=== PATIENT | male | born 1940 | race African-American/Black ===

== ENCOUNTER 2016-09-03 14:56 | Inpatient (IN) | payer OTHER ==
[~2016-09-03] VITALS: Ht 167.6 cm; Wt 92.5 kg
[2016-09-03 17:26] VITALS: BP 151/66; PULSE 74; RESP 18; TEMP 97.5; O2SAT 99
[2016-09-03] MEDS ORDERED: ATEN-41 PO (17:44)
[2016-09-03] MEDS ORDERED: METF-304 PO (17:44)
[2016-09-03] MEDS ORDERED: FURO-149 PO (17:44)
[2016-09-03] MEDS ORDERED: LOSA50TA3 PO (17:44)
[2016-09-03] MEDS ORDERED: NIFE60TA7 PO (17:44)
[2016-09-03] MEDS ORDERED: ASPI81TA2 PO (17:44)
[2016-09-03] MEDS ORDERED: DEXTROSE 50% JECT 50 ML DISP.SYRIN IVP PRN (18:15)
[2016-09-03] MEDS ORDERED: ACETAMINOPHEN 650 MG/20.3 ML UDC PO PRN (18:15)
--- NOTE | 2016-09-03 19:46 | NUR ---
INITIAL ASSESSMENT: RECEIVE PT IN BED, AWAKE, ALERT AND ORIENTED X4, WATCHING TV, BREATHING EVEN AND NON LABORED WITH 2 LI/NC, VITAL STABLE, DENIES PAIN, COUGHING WITH THICK YELLOW SEPTUM WITH SCANTY BLOOD, CHEST RHONCHI, ABDOMEN SOFT AND NON DISTENDED, ACTIVE BOWEL SOUND THROUGHOUT ABDOMEN, IV ON RIGHT ARM 22 G, SALINE LOCK. FLUSHED WELL. NO OTHER NEEDS AT THIS TIME, BED IN LOWEST POSITION, TWO SIDE RAILS UP, BED ALARM ON, FALL AND ASPIRATION PRECAUTIONS IN PLACE, CALL LIGHT IN THE PATIENT'S HAND. WILL CONTINUE TO MONITOR.
[2016-09-03 19:50] VITALS: BP 160/74; PULSE 77; RESP 20; TEMP 98.3; O2SAT 96
[2016-09-03] MEDS: LEVOFLOXACIN 500 MG/D5W 100 ML IV SCH (20:20)
[2016-09-03] MEDS: NIFEDIPINE 60 MG TABLET.SA (PROCARDIA XL 60 MG) PO SCH (20:20)
--- NOTE | 2016-09-03 21:30 | NUR ---
ADMINISTERED MEDICATION: PATIENT RESTING IN BED, BREATHING EVEN AND NON LABORED WITH 2 LI/NC, VITAL STABLE, DENIES PAIN, ADMINISTERED ALL ORDER MEDICATION. NO OTHER NEEDS AT THIS TIME, BED IN LOWEST POSITION, TWO SIDE RAILS UP, BED ALARM ON, FALL AND ASPIRATION PRECAUTIONS IN PLACE, CALL LIGHT IN THE PATIENT'S HAND. WILL CONTINUE TO MONITOR.
--- NOTE | 2016-09-03 23:55 | NUR ---
RN JUNIE/DR REAGAN: PATIENT AWAKE, RESTING IN BED, BREATHING EVEN AND NON LABORED WITH 2 LI/NC, VITAL STABLE, DENIES PAIN, COUGHING WITH THICK YELLOW SEPTUM WITH SCANTY BLOOD, SPUTUM COLLECTED AND SENT TO LAB, DR REAGAN MADE ROUND AND PLACE NEW ORDER FOR TB GOLD, SPTUM CULTURE AND PLACE PT IN TB ISOLATION. ALL ORDER FOLLOWED. PLACE PT IN ROOM 115, NO OTHER NEEDS AT THIS TIME, BED IN LOWEST POSITION, TWO SIDE RAILS UP, BED ALARM ON, FALL AND ASPIRATION PRECAUTIONS IN PLACE, CALL LIGHT IN THE PATIENT'S HAND. WILL CONTINUE TO MONITOR.
[2016-09-04] VITALS (7 sets, daily range): BP systolic 125–166; BP diastolic 63–78; PULSE 60–84; RESP 17–20; TEMP 97.1–98.8; O2SAT 94–100; Ht 167.6 cm; Wt 92.5 kg
[2016-09-04] MEDS ORDERED: BENZOCAINE/MENTHOL 1 EACH LOZENGE MM PRN
[2016-09-04] MEDS: INSULIN REGULAR, HUMAN 100 UNITS/ML, 10 ML VIAL (novoLIN R) SUBCUT PRN ×3 (00:05→17:36)
--- NOTE | 2016-09-04 00:13 | NUR ---
Consult Called Reason For Consultation: Chronic Cough Person who was person notified: Eula Was consult called:Y Consulting Physician: Rebecca Olivarez MD International Accounting Manager Specialty: infectious disease International Accounting Manager
--- NOTE | 2016-09-04 00:30 | NUR ---
ACCU CHECK: PATIENT AWAKE, WATCHING TV, RESTING IN BED, BREATHING EVEN AND NON LABORED WITH 2 LI/NC, VITAL STABLE, DENIES PAIN, COUGHING WITH THICK YELLOW SEPTUM WITH SCANTY BLOOD, ACCUCHECK DONE BS-258, COVERED WITH 6 UNIT REGULAR INSULIN SQ, MAINTAINED, RESPIRATORY ISOLATION. IV SITE PATENT, SALINE LOCK. NO OTHER NEEDS AT THIS TIME, BED IN LOWEST POSITION, TWO SIDE RAILS UP, BED ALARM ON, FALL AND ASPIRATION PRECAUTIONS IN PLACE, CALL LIGHT IN THE PATIENT'S HAND. WILL CONTINUE TO MONITOR.
--- NOTE | 2016-09-04 01:37 | NUR ---
RN ROUND: PATIENT SLEEPING, EASILY AWAKE, BREATHING EVEN AND NON LABORED WITH 2 LI/NC, VITAL STABLE, DENIES PAIN, MAINTAINED AIRBORNE ISOLATION. IV SITE PATENT, SALINE LOCK. NO OTHER NEEDS AT THIS TIME, BED IN LOWEST POSITION, TWO SIDE RAILS UP, BED ALARM ON, FALL AND ASPIRATION PRECAUTIONS IN PLACE, CALL LIGHT IN THE PATIENT'S HAND. WILL CONTINUE TO MONITOR.
--- NOTE | 2016-09-04 02:54 | NUR ---
Consult Called Was consult Called? Y Spoke with Eula Consulting Physician: Zeke Tapia MD Credit Assistant Specialty: Pulmonary Credit Assistant
--- NOTE | 2016-09-04 05:11 | NUR ---
RN ROUND: PATIENT SLEEPING, EASILY AWAKE, BREATHING EVEN AND NON LABORED WITH 2 LI/NC, VITAL STABLE, DENIES PAIN, MAINTAINED AIRBORNE ISOLATION. IV SITE PATENT, SALINE LOCK. NO OTHER NEEDS AT THIS TIME, BED IN LOWEST POSITION, TWO SIDE RAILS UP, BED ALARM ON, FALL AND ASPIRATION PRECAUTIONS IN PLACE, CALL LIGHT IN REACH. WILL CONTINUE TO MONITOR.
[2016-09-04] MEDS: ACETAMINOPHEN 325 MG TABLET PO PRN (05:54)
--- NOTE | 2016-09-04 07:25 | NUR ---
CLOSING NOTE: PATIENT SLEEPING, EASILY AWAKE, BREATHING EVEN AND NON LABORED WITH 2 LI/NC, VITAL STABLE, DENIES PAIN, MAINTAINED AIRBORNE ISOLATION. IV SITE PATENT, SALINE LOCK. NO OTHER NEEDS AT THIS TIME, BED IN LOWEST POSITION, TWO SIDE RAILS UP, BED ALARM ON, FALL AND ASPIRATION PRECAUTIONS IN PLACE, CALL LIGHT IN REACH. ALL NEEDS ATTENDED, WILL ENDORSE TO AM NURSE.
--- NOTE | 2016-09-04 07:30 | NUR ---
rn notes: patient is aaox 4. afebrile. vss stable. lungs bilaterally with rhonchi. has 2lnc of oxygen. abdomen soft and non distended. has coughing with spit slight blood noted. call lights within reach. safety measures maintained. bed in low position. informed to call for assistance. instructed how to collect sputum. bed in low position. still on airborne isolation
[2016-09-04 07:32] LABS: HEMATOCRIT 37.9 % (36-54); HEMOGLOBIN 12.7 g/dL (14.0-18.0); MEAN CORPUSCULAR HEMOGLOBIN 28 pg (27-31); MEAN CORPUSCULAR HGB CONC 34 % (32-36); MEAN CORPUSCULAR VOLUME 84 fL (79.0-98.0); PLATELET COUNT (AUTO) 211 K/uL (130-430); RED BLOOD CELL COUNT(AUTO) 4.52 MIL/uL (4.2-6.2); WHITE BLOOD COUNT (AUTO) 23.2 K/uL (4.8-10.8)
[2016-09-04 08:05] LABS: ALANINE AMINOTRANSFERASE 19 U/L (12-78); ALBUMIN 3.3 g/dL (3.4-4.8); ANION GAP 7 (5-15); ASPARTATE AMINOTRANSFERASE 14 U/L (10-37); CALCIUM 8.8 mg/dL (8.4-11.0); CHLORIDE 101 mmol/L (98-107); CREATININE 1.34 mg/dL (0.55-1.30); GLUCOSE 162 mg/dL (70-99); POTASSIUM 4.4 mmol/L (3.5-5.1); SODIUM SERUM 133 mmol/L (136-145); TOTAL BILIRUBIN 0.5 mg/dL (0.0-1.0); TOTAL PROTEIN, SERUM 7.3 g/dL (6.4-8.3); UREA NITROGEN, BLOOD 24 mg/dL (8-21)
--- NOTE | 2016-09-04 08:39 | NUR ---
had a breakfast tray brought by Claribel borrego. made comfortable.
--- NOTE | 2016-09-04 09:44 | NUR ---
laboratory called and informed jade bush not sputum was rejected by [place] kylie.
--- NOTE | 2016-09-04 09:45 | NUR ---
due medication given sitting on the chair.
[2016-09-04] MEDS: LOSARTAN POTASSIUM 50 MG TABLET (COZAAR) PO SCH (09:48)
[2016-09-04] MEDS: ATENOLOL 25 MG TABLET(TENORMIN) PO SCH (09:49)
[2016-09-04] MEDS: LACTOBACILLUS RHAMNOSUS GG 1 CAP CAPSULE PO SCH ×2 (09:49→20:52)
[2016-09-04] MEDS: ASPIRIN 81 MG TAB.CHEW PO SCH (09:50)
[2016-09-04] MEDS: FUROSEMIDE 40 MG TABLET PO SCH (09:50)
[2016-09-04] MEDS: NIFEDIPINE 60 MG TABLET.SA (PROCARDIA XL 60 MG) PO SCH ×2 (09:51→20:52)
[2016-09-04 10:12] LABS: ATYPICAL LYMPHOCYTES % 0 % (0-0); BAND % (MANUAL) 3 % (0-6); BASOPHILS % (MANUAL) 0 % (0-2); EOSINOPHILS % (MANUAL) 0 % (0-7); LYMPHOCYTES % (MANUAL) 7 % (20-46); MONOCYTES % (MANUAL) 3 % (0-11)
--- NOTE | 2016-09-04 10:30 | NUR ---
assists on adls. no pain nor distress noted.
--- NOTE | 2016-09-04 11:00 | NUR ---
Dr Garcia came to evaluate the patient.
[2016-09-04] MEDS ORDERED: ALBUTEROL SULFATE 0.083% 2.5 MG/3 ML VIAL.NEB INH PRN ×2 (11:30)
[2016-09-04] MEDS ORDERED: IPRATROPIUM BROM 0.5 MG/2.5 ML VIAL.NEB (ATROVENT) INH PRN (11:30)
--- NOTE | 2016-09-04 12:00 | NUR ---
zozyn iv antibiotic given
[2016-09-04] MEDS: PIPERACILLIN/TAZO 2.25G/DEX-IS 50 ML IV SCH ×2 (12:17→17:33)
[2016-09-04] MEDS: ALPRAZolam 0.25 MG TABLET PO PRN ×2 (12:19→20:52)
--- NOTE | 2016-09-04 12:22 | NUR ---
latest bs is 224mg/dl, coverage given
--- NOTE | 2016-09-04 17:00 | NUR ---
tb gold collected by the laboratory lady. and she said will bring the urine sample to the labaratory. together with the blood.
--- NOTE | 2016-09-04 18:00 | NUR ---
latest bs is 133mg/dl. no coverage given at this time.
--- NOTE | 2016-09-04 18:20 | NUR ---
zozyn iv antibiotic given to the patient. instructed regarding the sputum collection properly
--- NOTE | 2016-09-04 19:35 | NUR ---
sbar report given to incoming nurse Dwayne MANDUJANO
--- NOTE | 2016-09-04 19:45 | NUR ---
INITIAL ASSESSMENT: RECEIVE PT IN BED, AWAKE, ALERT AND ORIENTED X4, WATCHING TV, BREATHING EVEN AND NON LABORED WITH 2 LI/NC, VITAL STABLE, DENIES PAIN, COUGHING WITH THICK YELLOW SEPTUM WITH SCANTY AMOUNT BLOOD, CHEST RHONCHI, ABDOMEN SOFT AND NON DISTENDED, ACTIVE BOWEL SOUND THROUGHOUT ABDOMEN, PT HAS IV ON RIGHT ARM 22 G, SALINE LOCK. FLUSHED WELL. NO OTHER NEEDS AT THIS TIME, BED IN LOWEST POSITION, TWO SIDE RAILS UP, BED ALARM ON, FALL AND ASPIRATION PRECAUTIONS IN PLACE, MAINTAINED AIRBORNE ISOLATION TO RULE OUT TB. CALL LIGHT IN THE PATIENT'S HAND. WILL CONTINUE TO MONITOR.
[2016-09-04] MEDS: ALBUTEROL SULFATE 0.083% 2.5 MG/3 ML VIAL.NEB INH SCH (19:50)
[2016-09-04] MEDS: IPRATROPIUM BROM 0.5 MG/2.5 ML VIAL.NEB (ATROVENT) INH SCH (19:50)
[2016-09-04] MEDS: LEVOFLOXACIN 500 MG/D5W 100 ML IV SCH (20:52)
--- NOTE | 2016-09-04 21:30 | NUR ---
ADMINISTERED MEDICATION: PATIENT RESTING IN BED, BREATHING EVEN AND NON LABORED WITH 2 LI/NC, VITAL STABLE, DENIES PAIN, ADMINISTERED ALL ORDER MEDICATION. NO OTHER NEEDS AT THIS TIME, BED IN LOWEST POSITION, TWO SIDE RAILS UP, BED ALARM ON, FALL AND ASPIRATION PRECAUTIONS IN PLACE, CALL LIGHT IN THE PATIENT'S HAND. MAINTAINED AIRBORNE ISOLATION. WILL CONTINUE TO MONITOR.
--- NOTE | 2016-09-04 23:41 | NUR ---
RN ROUND: PATIENT AWAKE, WATCHING TV, BREATHING EVEN AND NON LABORED WITH 2 LI/NC, VITAL STABLE, DENIES PAIN, MAINTAINED AIRBORNE ISOLATION. IV SITE PATENT, SALINE LOCK. NO OTHER NEEDS AT THIS TIME, BED IN LOWEST POSITION, TWO SIDE RAILS UP, BED ALARM ON, FALL AND ASPIRATION PRECAUTIONS IN PLACE, CALL LIGHT IN REACH. WILL CONTINUE TO MONITOR.
[2016-09-05] VITALS (7 sets, daily range): BP systolic 122–157; BP diastolic 57–81; PULSE 60–98; RESP 16–20; TEMP 96.9–97.9; O2SAT 92–99
[2016-09-05] MEDS: PIPERACILLIN/TAZO 2.25G/DEX-IS 50 ML IV SCH ×5 (00:12→23:23)
--- NOTE | 2016-09-05 00:30 | NUR ---
ACCU CHECK DONE BS-123, NO COVERAGE NEEDED.
--- NOTE | 2016-09-05 06:05 | NUR ---
ACCU CHECK DONE BS-140, NO COVERAGE NEEDED.
[2016-09-05] MEDS: IPRATROPIUM BROM 0.5 MG/2.5 ML VIAL.NEB (ATROVENT) INH SCH ×3 (07:00→20:28)
[2016-09-05] MEDS: ALBUTEROL SULFATE 0.083% 2.5 MG/3 ML VIAL.NEB INH SCH ×3 (07:00→20:28)
[2016-09-05 07:26] LABS: BASOPHILS % (AUTO) 0.2 % (0.0-2.0); EOSINOPHILS # (AUTO) 0.2 K/uL (0.0-0.4); EOSINOPHILS % (AUTO) 1.6 % (0.0-4.0); HEMATOCRIT 38.3 % (36-54); HEMOGLOBIN 12.8 g/dL (14.0-18.0); LYMPHOCYTES # (AUTO) 2.7 K/uL (1.0-5.5); MEAN CORPUSCULAR HEMOGLOBIN 28 pg (27-31); MEAN CORPUSCULAR HGB CONC 33 % (32-36); MEAN CORPUSCULAR VOLUME 84 fL (79.0-98.0); MONOCYTES # (AUTO) 0.7 K/uL (0.0-1.0); MONOCYTES % (AUTO) 6.8 % (1.7-9.3); NEUTROPHILS # (AUTO) 6.4 K/uL (1.8-7.7); NEUTROPHILS % (AUTO) 64.4 % (40.0-70.0); PLATELET COUNT (AUTO) 239 K/uL (130-430); RED BLOOD CELL COUNT(AUTO) 4.58 MIL/uL (4.2-6.2); RED CELL DISTRIBUTION WIDTH 14.2 % (9.0-15.0)
--- NOTE | 2016-09-05 07:30 | NUR ---
rn notes: patient aaox 4 afebrile. vss stable. lungs bilaterally with rhonchi. abdomen soft and non distended. iv access on the right forearm #20. saline lock dry/intact. bed in low position. call lights within reach. safety measures maintained. on airborne isolation still. informed to call for assistance.
--- NOTE | 2016-09-05 07:36 | NUR ---
CARE ENDORSE TO WENDY RN, PT STABLE, NO DISTRESS. ALL NEEDS ATTENDED THROUGHOUT SHIFT.
[2016-09-05 07:55] LABS: ALANINE AMINOTRANSFERASE 22 U/L (12-78); ALBUMIN 3.3 g/dL (3.4-4.8); ANION GAP 1 (5-15); ASPARTATE AMINOTRANSFERASE 16 U/L (10-37); CALCIUM 8.8 mg/dL (8.4-11.0); CHLORIDE 102 mmol/L (98-107); GLUCOSE 163 mg/dL (70-99); POTASSIUM 3.8 mmol/L (3.5-5.1); SODIUM SERUM 134 mmol/L (136-145); TOTAL BILIRUBIN 0.6 mg/dL (0.0-1.0); TOTAL PROTEIN, SERUM 7.3 g/dL (6.4-8.3); UREA NITROGEN, BLOOD 23 mg/dL (8-21)
--- NOTE | 2016-09-05 09:30 | NUR ---
due medication given as scheduled. assists on adl.s
[2016-09-05] MEDS: LACTOBACILLUS RHAMNOSUS GG 1 CAP CAPSULE PO SCH ×2 (10:16→20:37)
[2016-09-05] MEDS: ASPIRIN 81 MG TAB.CHEW PO SCH (10:16)
[2016-09-05] MEDS: NIFEDIPINE 60 MG TABLET.SA (PROCARDIA XL 60 MG) PO SCH ×2 (10:17→20:38)
[2016-09-05] MEDS: ATENOLOL 25 MG TABLET(TENORMIN) PO SCH (10:17)
--- NOTE | 2016-09-05 10:20 | NUR ---
due medication given as ordered. made comfortable. dr euceda came and evaluate the patient.
[2016-09-05] MEDS: FLUCONAZOLE 200 mg/ NS 100 ML IV SCH (12:42)
[2016-09-05] MEDS: INSULIN REGULAR, HUMAN 100 UNITS/ML, 10 ML VIAL (novoLIN R) SUBCUT PRN ×3 (12:51→23:33)
--- NOTE | 2016-09-05 12:53 | NUR ---
latest bs is 172 mg/dl. coverage given at the bedside.
--- NOTE | 2016-09-05 14:30 | NUR ---
families are the bedside. will continue to monitor patients status.
--- NOTE | 2016-09-05 16:21 | NUR ---
patient watching tv. stable. no pain nor distress noted.
--- NOTE | 2016-09-05 18:20 | NUR ---
zozyn iv antibiotic given as ordered. assists on adls. latest is 136mg/dl. no insulin given.
--- NOTE | 2016-09-05 19:30 | NUR ---
sbar report given to the incoming nurse Paul MANDUJANO
--- NOTE | 2016-09-05 20:00 | NUR ---
Initial Notes Received patient laying in bed, awake, alert, oriented, at bedside. Patient in negative pressure airborne isolation room. Patient denies any acute distress or pain at this time. Vital signs stable. Breathing is even and unlabored on 3L NC. IV site patent/clean/dry. Needs addressed. Educated patient and family on isolation protocol, both verbalized understanding. Educated patient on use of call light for assistance and fall precautions, patient verbalized understanding. Call light in hand, will continue to monitor.
[2016-09-05] MEDS: LEVOFLOXACIN 500 MG/D5W 100 ML IV SCH (20:36)
[2016-09-05] MEDS: ALPRAZolam 0.25 MG TABLET PO PRN (20:38)
--- NOTE | 2016-09-05 22:00 | NUR ---
Rounds Patient resting in bed, awake, son at bedside. Patient denies any acute distress or pain at this time. Breathing is even and unlabored. Needs addressed. Educated son on airborne isolation protocol, verbalized understanding. Call light in hand, will continue to monitor.
--- NOTE | 2016-09-06 | NUR ---
Rounds Patient resting in bed, awake. Patient denies any acute distress, pain, or needs at this time. Breathing is even and unlabored. IV site patent/clean/dry. Call light in hand. Will continue to monitor.
[2016-09-06 00:18] VITALS: BP 149/68; PULSE 70; RESP 18; TEMP 98.2; O2SAT 96
[2016-09-06] MEDS: ALBUTEROL SULFATE 0.083% 2.5 MG/3 ML VIAL.NEB INH SCH ×4 (01:00→19:55)
[2016-09-06] MEDS: IPRATROPIUM BROM 0.5 MG/2.5 ML VIAL.NEB (ATROVENT) INH SCH ×4 (01:00→19:54)
--- NOTE | 2016-09-06 01:59 | NUR ---
Rounds Patient resting in bed with eyes closed. No acute distress noted, breathing even and unlabored. Call light in hand, fall precautions in place. Will continue to monitor.
--- NOTE | 2016-09-06 04:24 | NUR ---
Rounds Patient resting in bed with eyes closed. No acute distress noted, breathing is even and unlabored. Call light in hand, will continue to monitor.
[2016-09-06] MEDS: PIPERACILLIN/TAZO 2.25G/DEX-IS 50 ML IV SCH ×4 (05:06→22:46)
--- NOTE | 2016-09-06 06:29 | NUR ---
Closing Notes Patient resting in bed with eyes closed, easily aroused. Patient denies any acute distress or pain at this time. Breathing is even and unlabored. IV site patent/clean/dry, no S/S infection/infiltration. Needs addressed throughout shift. Call light in hand, fall precautions in place. Will continue to monitor for changes and safety, and endorse all patient care/needs to oncoming nurse. Patient remains on airborne isolation.
[2016-09-06 07:29] LABS: BASOPHILS % (AUTO) 0.7 % (0.0-2.0); EOSINOPHILS # (AUTO) 0.2 K/uL (0.0-0.4); EOSINOPHILS % (AUTO) 2.3 % (0.0-4.0); HEMATOCRIT 40.5 % (36-54); HEMOGLOBIN 13.3 g/dL (14.0-18.0); LYMPHOCYTES # (AUTO) 2.3 K/uL (1.0-5.5); MEAN CORPUSCULAR HEMOGLOBIN 28 pg (27-31); MEAN CORPUSCULAR HGB CONC 33 % (32-36); MEAN CORPUSCULAR VOLUME 84 fL (79.0-98.0); MONOCYTES # (AUTO) 0.5 K/uL (0.0-1.0); MONOCYTES % (AUTO) 8.1 % (1.7-9.3); NEUTROPHILS # (AUTO) 3.7 K/uL (1.8-7.7); NEUTROPHILS % (AUTO) 54.9 % (40.0-70.0); PLATELET COUNT (AUTO) 292 K/uL (130-430); RED BLOOD CELL COUNT(AUTO) 4.83 MIL/uL (4.2-6.2); RED CELL DISTRIBUTION WIDTH 14.3 % (9.0-15.0)
--- NOTE | 2016-09-06 07:35 | NUR ---
rn notes: patient still sleepy. afebrile. vss stable. lungs bilaterally with diminished at the bases. abdomen soft and non distended. iv access on the rt forearm #20. saline lock dry/intact. bed in low position. call lights within reach. maintained. safety measures. informed patient to call for assistance. still on airborne isolation. no coughing noted. no pain nor distress noted.
[2016-09-06 07:37] LABS: ALANINE AMINOTRANSFERASE 23 U/L (12-78); ALBUMIN 3.2 g/dL (3.4-4.8); ANION GAP 4 (5-15); ASPARTATE AMINOTRANSFERASE 12 U/L (10-37); CALCIUM 8.6 mg/dL (8.4-11.0); CHLORIDE 104 mmol/L (98-107); CREATININE 1.58 mg/dL (0.55-1.30); GLUCOSE 146 mg/dL (70-99); POTASSIUM 4.2 mmol/L (3.5-5.1); SODIUM SERUM 135 mmol/L (136-145); TOTAL BILIRUBIN 0.5 mg/dL (0.0-1.0); TOTAL PROTEIN, SERUM 7.1 g/dL (6.4-8.3); UREA NITROGEN, BLOOD 22 mg/dL (8-21)
[2016-09-06 07:43] LABS: WHITE BLOOD COUNT (AUTO) 6.7 K/uL (4.8-10.8)
[2016-09-06 08:54] VITALS: BP 139/79; PULSE 69; RESP 16; TEMP 98; O2SAT 97
--- NOTE | 2016-09-06 09:00 | NUR ---
rounds patient is sitting on the chair. doing paperworks. no sob nor distress noted. assists on adls.
[2016-09-06] MEDS: NIFEDIPINE 60 MG TABLET.SA (PROCARDIA XL 60 MG) PO SCH ×2 (09:37→21:14)
[2016-09-06] MEDS: ASPIRIN 81 MG TAB.CHEW PO SCH (09:37)
[2016-09-06] MEDS: LOSARTAN POTASSIUM 50 MG TABLET (COZAAR) PO SCH (09:38)
[2016-09-06] MEDS: ATENOLOL 25 MG TABLET(TENORMIN) PO SCH (09:38)
[2016-09-06] MEDS: LACTOBACILLUS RHAMNOSUS GG 1 CAP CAPSULE PO SCH ×2 (09:39→21:14)
[2016-09-06] MEDS: FUROSEMIDE 40 MG TABLET PO SCH (09:39)
--- NOTE | 2016-09-06 10:00 | NUR ---
due medication given at this time.
[2016-09-06 11:13] VITALS: BP 134/89; PULSE 73; RESP 16; TEMP 98.1; O2SAT 98
--- NOTE | 2016-09-06 12:00 | NUR ---
eating lunch slowly while watching tv. no pain nor distress noted.
--- NOTE | 2016-09-06 12:15 | NUR ---
iv antibiotic of zozyn given. made comfortable.
[2016-09-06] MEDS: FLUCONAZOLE 200 mg/ NS 100 ML IV SCH (12:17)
[2016-09-06] MEDS: INSULIN REGULAR, HUMAN 100 UNITS/ML, 10 ML VIAL (novoLIN R) SUBCUT PRN ×3 (12:23→22:57)
--- NOTE | 2016-09-06 12:24 | NUR ---
latest bs is 192 mg/dl. coverage given.
[2016-09-06 12:29] VITALS: BP 133/66; PULSE 68; RESP 17; TEMP 97.6; O2SAT 95
--- NOTE | 2016-09-06 14:35 | NUR ---
sending specimen sputum for afb.
[2016-09-06 16:16] VITALS: BP_SYST 122; BP_SYST 133; BP_DIAS 63; BP_DIAS 66; PULSE 59; PULSE 68; RESP 17; TEMP 97.6; TEMP 98.7; O2SAT 95
--- NOTE | 2016-09-06 16:25 | NUR ---
Dr Garcia was called by [facility] Charge nurse. to informed tb gold test is negative
--- NOTE | 2016-09-06 18:00 | NUR ---
latest bs is 126mg/dl. no coverage given. no pain. nor distress noted. still on zozyn iv antibiotic.
--- NOTE | 2016-09-06 18:30 | NUR ---
patient is walking in the hallway ambulating by himself. off the isolation Dr Garcia is aware.
--- NOTE | 2016-09-06 19:15 | NUR ---
INITIAL NOTES RECVD PT IN IN BED. PT IS A/A/O X4. NO S/S OF ANY PAIN OR DISTRESS NOTED. IV NOTED TO R F/A G 20, NO INFILTRATE AND WITH GOOD BLOOD RETURN. ALL EXTREMITIES ARE STRONG, BRP. DISCUSSED PLAN OF CARE WITH PT AND VERBALIZED UNDERSTANDING. BED IN LOW POSITION WITH SIDE RAILS UP X 2. CALL LIGHT IN REACH, WILL CONT TO MONITOR.
[2016-09-06 19:23] LABS: MYCOPLASMA PNEUMONIAE IgM <770 U/mL (0-769)
--- NOTE | 2016-09-06 19:32 | NUR ---
sbar report given to incoming nurse Espinosa RN
--- NOTE | 2016-09-06 21:15 | NUR ---
ROUNDS PT IS AWAKE WATCHING TV WITH @ BEDSIDE. NO S/S OF ANY DISTRESS NOTED. CALL LIGHT WITHIN REACH, WILL CONT TO MONITOR.
[2016-09-06] MEDS: LEVOFLOXACIN 500 MG/D5W 100 ML IV SCH (21:20)
--- NOTE | 2016-09-06 23:15 | NUR ---
ROUNDS PT IS RESTING COMFORTABLY @ THIS TIME. NO S/S OF ANY PAIN OR DISTRESS NOTED. CALL LIGHT WITHIN REACH, WILL CONT TO MONITOR.
[2016-09-07] VITALS (7 sets, daily range): BP systolic 116–141; BP diastolic 59–79; PULSE 58–79; RESP 16–18; TEMP 96.5–99.6; O2SAT 95–99
[2016-09-07] MEDS: ALBUTEROL SULFATE 0.083% 2.5 MG/3 ML VIAL.NEB INH SCH ×4 (00:25→20:06)
[2016-09-07] MEDS: IPRATROPIUM BROM 0.5 MG/2.5 ML VIAL.NEB (ATROVENT) INH SCH ×4 (00:25→20:07)
[2016-09-07] MEDS: ALPRAZolam 0.25 MG TABLET PO PRN ×2 (00:26→23:14)
--- NOTE | 2016-09-07 01:14 | NUR ---
ROUNDS PT IS AWAKE, READING A BOOK @ THIS TIME. NO S/S OF ANY DISTRESS NOTED. CALL LIGHT IN REACH, WILL CONT TO MONITOR.
--- NOTE | 2016-09-07 03:14 | NUR ---
ROUNDS PT IS RESTING COMFORTABLY AT THIS TIME. NO S/S OF ANY DISTRESS NOTED. BED IN LOW POSITION WITH CALL LIGHT WITHIN REACH; WILL CONT TO MONITOR.
--- NOTE | 2016-09-07 05:14 | NUR ---
ROUNDS PT IS COMFORTABLY RESTING @ THIS TIME. NO S/S OF ANY DISTRESS NOTED. BED IN LOW POSITION WITH CALL LIGHT IN REACH. WILL CONT TO MONITOR.
[2016-09-07] MEDS: PIPERACILLIN/TAZO 2.25G/DEX-IS 50 ML IV SCH ×4 (05:17→23:14)
--- NOTE | 2016-09-07 06:53 | NUR ---
FINAL NOTES PT IS COMFORTABLY RESTING AT THIS TIME. NO S/S OF ANY DISTRESS NOTED AT THIS TIME. V/S ARE WNL. ALL NEEDS MET AND ANTICIPATED BY NOC NURSES. BED IN LOW POSITION FOR SAFETY WITH CALL LIGHT IN REACH, ENDORSED.
--- NOTE | 2016-09-07 08:00 | NUR ---
AM NOTES PT SITTING IN A CHAIR. DENIES ANY PAIN OR DISCOMFORT. ON ROOM AIR. DENIES ANY SHORTNESS OF BREATH. AMBULATE TO THE BATHROOM WITH STEADY GAIT. SAFETY PRECAUTION OBSERVED. IVL. ENC. TO CALL FOR HELP NEEDED. WILL MONITOR.
[2016-09-07] MEDS: LACTOBACILLUS RHAMNOSUS GG 1 CAP CAPSULE PO SCH ×2 (08:46→21:27)
[2016-09-07] MEDS: ATENOLOL 25 MG TABLET(TENORMIN) PO SCH (08:47)
[2016-09-07] MEDS: ASPIRIN 81 MG TAB.CHEW PO SCH (08:47)
[2016-09-07] MEDS: NIFEDIPINE 60 MG TABLET.SA (PROCARDIA XL 60 MG) PO SCH ×2 (08:48→21:27)
--- NOTE | 2016-09-07 10:00 | NUR ---
NOTES SITTING IN THE CHAIR. PT ON HIS COMPUTER. NO DISTRESS NOTED.
[2016-09-07] MEDS: FLUCONAZOLE 200 mg/ NS 100 ML IV SCH (11:25)
[2016-09-07] MEDS: INSULIN REGULAR, HUMAN 100 UNITS/ML, 10 ML VIAL (novoLIN R) SUBCUT PRN (11:30)
--- NOTE | 2016-09-07 12:30 | NUR ---
NOTES SITTING IN A CHAIR. DENIES ANY PAIN OR DISCOMFORT. NO DISTRESS NOTED. DUE MEDS GIVEN.
--- NOTE | 2016-09-07 14:00 | NUR ---
SPUTUM Seen by DR. Alejandre and ordered [employer] (third) pt made aware and instructed.
--- NOTE | 2016-09-07 18:37 | NUR ---
NOTES SITTING IN THE CHAIR. DENIES ANY PAIN OR DISCOMFORT. IV ABX ONGOING. AMBULATE WITH STEADY GAIT. ALL NEEDS MEET. WILL ENDORSE
--- NOTE | 2016-09-07 19:20 | NUR ---
CHANGE OF SHIFT: pt. up in chair doing stuff with his personal computer. off isolation as endorsed by Bette, no complaints manifested. no shortness of breath , still with occasional cough , instructed to save sputum for lab test. call light within reach.
--- NOTE | 2016-09-07 21:30 | NUR ---
NOTES: still up in chair. due oral and IV meds given. needs attended.
[2016-09-07] MEDS: LEVOFLOXACIN 500 MG/D5W 100 ML IV SCH (21:35)
--- NOTE | 2016-09-08 00:30 | NUR ---
ROUNDS: pt. back to bed. IV lock, due antibiotic completed. still reading a book. instructed to call for help, use of call light.
[2016-09-08 00:50] VITALS: BP 136/65; PULSE 62; RESP 18; TEMP 96.7; O2SAT 94
--- NOTE | 2016-09-08 03:00 | NUR ---
ROUNDS: pt. sleeping when made rounds. in no acute distress.
[2016-09-08] MEDS: ALBUTEROL SULFATE 0.083% 2.5 MG/3 ML VIAL.NEB INH SCH ×4 (03:49→19:00)
[2016-09-08] MEDS: IPRATROPIUM BROM 0.5 MG/2.5 ML VIAL.NEB (ATROVENT) INH SCH ×4 (03:49→19:00)
[2016-09-08 04:36] VITALS: BP 140/61; PULSE 72; RESP 16; TEMP 98.6; O2SAT 96
[2016-09-08] MEDS: PIPERACILLIN/TAZO 2.25G/DEX-IS 50 ML IV SCH ×4 (06:06→23:59)
--- NOTE | 2016-09-08 06:30 | NUR ---
CLOSING NOTES: pt. still sleeping, awakened for IV antibiotic and blood sugar check. no complaints manifested, went back to sleep.
--- NOTE | 2016-09-08 07:16 | NUR ---
endorsed pt. to incoming shift with nurse Amos.
--- NOTE | 2016-09-08 07:48 | NUR ---
am notes Pt in bed awake, alert and oriented. denies any pain or discomfort. ambulate with steady gait. has sputum sample. will send it to lab. no distress noted. call light in reach. will monitor.
[2016-09-08 08:00] VITALS: BP 139/59; PULSE 70; RESP 17; TEMP 97.8; O2SAT 95
[2016-09-08] MEDS: ASPIRIN 81 MG TAB.CHEW PO SCH (09:02)
[2016-09-08] MEDS: LACTOBACILLUS RHAMNOSUS GG 1 CAP CAPSULE PO SCH ×2 (09:04→21:01)
[2016-09-08] MEDS: NIFEDIPINE 60 MG TABLET.SA (PROCARDIA XL 60 MG) PO SCH ×2 (09:04→21:01)
[2016-09-08] MEDS: ATENOLOL 25 MG TABLET(TENORMIN) PO SCH (09:04)
--- NOTE | 2016-09-08 10:00 | NUR ---
rounds up in chair, no distress noted.
[2016-09-08] MEDS: FLUCONAZOLE 200 mg/ NS 100 ML IV SCH (11:22)
--- NOTE | 2016-09-08 12:01 | NUR ---
insulin blood sugar 164. per pt he just eat. refused insulin at this time.
[2016-09-08 12:27] VITALS: BP 141/60; PULSE 72; RESP 17; TEMP 97.9; O2SAT 97
[2016-09-08 13:18] LABS: ASPERGILLUS FLAVUS Negative (Neg:<1:1); ASPERGILLUS FUMIGATUS Negative (Neg:<1:1)
[2016-09-08] MEDS: ACETAMINOPHEN 325 MG TABLET PO PRN (14:13)
--- NOTE | 2016-09-08 15:00 | NUR ---
rounds sitting in a chair, talking with the visitor. stable.
[2016-09-08 15:59] VITALS: BP 138/64; PULSE 81; RESP 17; TEMP 98; O2SAT 97
[2016-09-08] MEDS: INSULIN REGULAR, HUMAN 100 UNITS/ML, 10 ML VIAL (novoLIN R) SUBCUT PRN (17:09)
--- NOTE | 2016-09-08 18:30 | NUR ---
closing notes awake, eating dinner. denies any pain or discomfort. all needs meet. will endorse
[2016-09-08 19:30] VITALS: BP_SYST 133; BP_DIAS 61; BP_DIAS 67; PULSE 66; RESP 16; TEMP 97.8; O2SAT 98
--- NOTE | 2016-09-08 19:30 | NUR ---
notes received the pt from the day nurse.pt a/a/ox4 sitting in a chair with no c/o pain or sob,family members are at the bedside.iv intact to rt forearm.no redness or swelling noted. call light within reach safety measures in progress.continue to monitor.
--- NOTE | 2016-09-08 21:33 | NUR ---
pt watching tv with no complaints.continue to monitor.
[2016-09-08] MEDS: LEVOFLOXACIN 500 MG/D5W 100 ML IV SCH (22:36)
--- NOTE | 2016-09-08 23:38 | NUR ---
notes resting with his eyes closed awaken for accucheck that [id number].call light within reach.continue to monitor.
[2016-09-09] MEDS: ALBUTEROL SULFATE 0.083% 2.5 MG/3 ML VIAL.NEB INH SCH (00:13)
[2016-09-09] MEDS: IPRATROPIUM BROM 0.5 MG/2.5 ML VIAL.NEB (ATROVENT) INH SCH (00:13)
[2016-09-09 00:35] VITALS: BP 140/74; PULSE 74; RESP 14; TEMP 97; O2SAT 95
--- NOTE | 2016-09-09 01:30 | NUR ---
notes pt sleeping,no distress noted.call light within reach.continue to monitor.
--- NOTE | 2016-09-09 03:14 | NUR ---
notes pt sleeping.call light within reach.continue to monitor.
[2016-09-09 04:12] VITALS: BP 136/67; PULSE 77; RESP 14; TEMP 99; O2SAT 96
--- NOTE | 2016-09-09 05:08 | NUR ---
notes pt remains asleep,no dyspnea noted.continue to monitor.
[2016-09-09] MEDS: PIPERACILLIN/TAZO 2.25G/DEX-IS 50 ML IV SCH (05:59)
[2016-09-09] MEDS: INSULIN REGULAR, HUMAN 100 UNITS/ML, 10 ML VIAL (novoLIN R) SUBCUT PRN ×2 (06:26→12:22)
--- NOTE | 2016-09-09 06:29 | NUR ---
CLOSING NOTES. ACCUCHECK WAS 161.INSULIN GIVEN PER S/S.WILL ENDORSE THE CARE OF THE PT TO THE DAY NURSE.
--- NOTE | 2016-09-09 08:00 | NUR ---
Opening notes; Pt in bed awake, alert and oriented. denies any pain or discomfort. ambulate with steady gait. no distress noted. call light in reach. will monitor.
[2016-09-09 08:12] VITALS: BP 139/64; PULSE 75; RESP 16; TEMP 97.9; O2SAT 96
[2016-09-09] MEDS: FUROSEMIDE 40 MG TABLET PO SCH (08:46)
[2016-09-09] MEDS: LOSARTAN POTASSIUM 50 MG TABLET (COZAAR) PO SCH (08:48)
[2016-09-09] MEDS: ATENOLOL 25 MG TABLET(TENORMIN) PO SCH (08:49)
[2016-09-09] MEDS: ASPIRIN 81 MG TAB.CHEW PO SCH (08:50)
[2016-09-09] MEDS: NIFEDIPINE 60 MG TABLET.SA (PROCARDIA XL 60 MG) PO SCH (08:59)
--- NOTE | 2016-09-09 10:00 | NUR ---
rounding notes Pt in room sitting on the chair, reading his books. denies any pain or discomfort. no distress noted. call light in reach. will monitor.
[2016-09-09] MEDS ORDERED: AMOX-423 PO (11:32)
--- NOTE | 2016-09-09 12:00 | NUR ---
jena notes. pt sitting on the chair, resting comfortably. no pain, no distress.
[2016-09-09] MEDS: FLUCONAZOLE 200 mg/ NS 100 ML IV SCH (12:18)
[2016-09-09 12:25] VITALS: BP 162/84; PULSE 62; RESP 16; TEMP 98; O2SAT 98
[2016-09-09] MEDS ORDERED: AMOXICILLIN/CLAVULANATE POTASSIUM 500 MG TABLET PO SCH (14:00)
--- NOTE | 2016-09-09 14:00 | NUR ---
rounding notes, pt sitting comfortably in chair, on his laptop, no c/o pain. no sob. will cont to monitor.
--- NOTE | 2016-09-09 16:00 | NUR ---
rounding note. pt aware that he is going home. told pt that this rn is just clarifying with the pcp and pharmacy his home medication orders. pt has no complain at this time. will cont to monitor.
[2016-09-09 16:47] VITALS: BP 120/62; PULSE 60; RESP 16; TEMP 97.4; O2SAT 97
[2016-09-09 17:03] VITALS: BP 120/62; PULSE 60; RESP 16; TEMP 97.4; O2SAT 97
--- NOTE | 2016-09-09 18:45 | NUR ---
D/C Patient Patient given medication reconciliation form and D/C instructions. Exit Care provided. Patient verbalized understanding. MD discussed with patient the results and treatment provided. Ambulatory with steady gait for discharge to home. Patient in stable condition, ID band removed. IV catheter removed, intact and dressing applied, no active bleeding. Rx of given. Patient educated on pain management. All belongings sent with patient.
[2016-09-10 11:15] LABS: CRYPTOCOCCUS AG, SERUM NEGATIVE (NEGATIVE)
--- NOTE | 2016-09-16 12:35 | NUR ---
Discharge Follow Up Phone Calls: Clerk called and attempted to speak with pt ([phone]) on 09/12/16, but pt's phone was busy. LICENSED MASSAGE THERAPIST called and attempted to speak with pt on 09/13/16, but pt's phone was disconnected. LICENSED MASSAGE THERAPIST called and left a voice mail message for pt's ([phone]) on 09/13/16. LICENSED MASSAGE THERAPIST called and spoke with pt's today. Pt's states that pt is doing well; pt's prescriptions have been filled; there are no questions regarding discharge or medication instructions; pt attended PCP follow up appointment on 09/10/16; pt checks blood sugar as directed by PCP. Pt's did not express any other needs or concerns and denied the need for additional follow up at this time. No further follow up phone calls required at this time.
== END 2016-09-09 18:45 | disposition home or self-care (01) | DRG 871 ==
LOC: SMU 17:02
PROVIDERS: ADMIT Internal Medicine Hospice and Palliative Medicine
DX: A41.9 Sepsis, unspecified organism (principal); J15.9 Unspecified bacterial pneumonia; B38.2 Pulmonary coccidioidomycosis, unspecified; A15.0 Tuberculosis of lung; E11.9 Type 2 diabetes mellitus without complications; F17.210 Nicotine dependence, cigarettes, uncomplicated; I11.9 Hypertensive heart disease without heart failure; Z79.82 Long term (current) use of aspirin; Z79.899 Other long term (current) drug therapy; Z88.1 Allergy status to other antibiotic agents; Z91.041 Radiographic dye allergy status; Z82.49 Family history of ischemic heart disease and other diseases of the circulatory system
CPT/HCPCS: 36415; 71010; 71250-TC; 80053; 82962; 85007; 85025; 85027; 86480; 86606; 86635; 86738; 87101; 87116; 87205-TC; 87449; 87899; 94640; 94760; J1450; J1815; J1956; J2543; J7040; J7050